=== PATIENT | male | born 1980 | race Hispanic/Latino ===

== ENCOUNTER 2025-08-05 11:54 | Emergency (ER) | payer OTHER, SELFPAY ==
[2025-08-05 12:18] VITALS: BP 118/78; PULSE 83; RESP 18; TEMP 36.8; O2SAT 97; BMI 30.2
--- NOTE | 2025-08-05 12:29 | ED_ITS ---
HPI - Male Genitourinary General Chief complaint: Urogenital-Male Stated complaint: Freq urination and px Time Seen by Provider: 08/05/25 12:03 Source: patient Mode of arrival: Ambulatory History of Present Illness HPI Narrative: 45-year-old gentleman kidney stones presents with bilateral flank pain radiating to groin for the past few days and dysuria. Patient denies any fever, chills, bodyaches, penile discharge, abdominal pain, nausea, vomiting, diarrhea, rectal pain, constipation. Other than what is stated 14 point review of system is negative. Related Data Previous Rx's ?Medication ?Instructions ?Recorded tamsulosin 0.4 mg capsule (Flomax) 0.4 mg PO BEDTIME # 30 caps 08/05/25 Allergies Allergy/AdvReac Type Severity Reaction Status Date / Time sulfamethoxazole (From Allergy Severe Vomiting Verified 08/05/25 12:19 Bactrim) trimethoprim (From Bactrim) Allergy Severe Vomiting Verified 08/05/25 12:19 Penicillins Allergy Intermediate Verified 08/05/25 12:19 Review of Systems Review of Systems ROS Unobtainable: All systems reviewed & are unremarkable except as noted in HPI and below Patient History Social History Smoking Status: Current some day smoker Smoking Status: Current some day smoker tobacco type: e-cigarettes Exam Narrative Exam Narrative: GENERAL: [45] year old patient appears stated age. Well-developed patient, in mild distress. HEAD: Atraumatic. Normocephalic. EYES: Pupils equal round and reactive. Extraocular motions intact. No scleral icterus. No injection or drainage. ENT: Nose without bleeding, purulent drainage. Throat without erythema, tonsillar hypertrophy or exudate. Airway patent. NECK: Trachea midline. Non tender CARDIOVASCULAR: Regular rate and rhythm without murmurs, gallops, or rubs. RESPIRATORY: Clear to auscultation. Breath sounds equal bilaterally. No wheezes, rales, or rhonchi. GASTROINTESTINAL: Abdomen soft, non-tender, nondistended. EXTREMITIES: No edema or joint tenderness. BACK: Nontender without deformity or crepitance. No flank tenderness. NEURO: AOx3. SKIN: No rash or erythema of visible areas Initial Vital Signs Initial Vital Signs: Vital Signs Temperature 98.2 F 08/05/25 12:18 Pulse Rate 83 08/05/25 12:18 Respiratory Rate 18 08/05/25 12:18 Blood Pressure 118/78 08/05/25 12:18 Pulse Oximetry 97 08/05/25 12:18 Oxygen Delivery Method Room Air 08/05/25 12:18 Course Orders Ordered: ED Orders 08/05/25 14:26 CT abdomen pelvis w con Stat 08/05/25 14:34 CBC Auto Diff [Complete Blood Count AUTO DIFF] Stat CMP [Comprehensive Metabolic Panel] Stat Vital Signs Vital signs: Vital Signs - 8 hr 08/05/25 12:18 Temperature 98.2 F Pulse Rate 83 Respiratory Rate 18 Blood Pressure 118/78 Pulse Oximetry 97 Oxygen Delivery Method Room Air MDM - Male Genitourinary Lab Data 08/05/25 14:34 08/05/25 14:34 Labs: Lab Results 08/05/25 Range/Units 14:34 WBC 6.7 (4.5-11.0) X10^3/uL RBC 4.73 (4.5-5.9) X10^6/uL Hgb 14.4 (13.5-17.5) g/dL Hct 42.3 (41-53) % MCV 89.3 (80-100) fL MCH 30.5 (26-34) PG MCHC 34.1 (30-36) % RDW 13.7 (11.6-14.8) % Plt Count 282 (150-400) X10^3/uL Neut % (Auto) 57.3 (50-75) % Lymph % (Auto) 26.2 (25-40) % Andrews % (Auto) 7.0 (3-14) % Eos % (Auto) 8.6 H (2-4) % Baso % (Auto) 0.9 (0-2) % Neut # (Auto) 3800 (0601-1156) /uL Lymph # (Auto) 1700 (2542-5529) /uL Andrews # (Auto) 500 (0-900) /uL Eos # (Auto) 600 H (0-450) /uL Baso # (Auto) 100 (0-100) /uL Sodium 138 (137-145) mmol/L Potassium 4.3 (3.4-5.1) mmol/L Chloride 104 (98-107) mmol/L Carbon Dioxide 28 (22-32) mmol/L BUN 16 (9-20) mg/dL Creatinine 0.80 (0.66-1.25) mg/dL Estimated GFR > 60 (>60) mL/min BUN/Creatinine Ratio 20.0 (6-22) Glucose 95 (70-99) mg/dL Calcium 9.6 (8.4-10.2) mg/dL Total Bilirubin 0.3 (0.2-1.3) mg/dL AST 26 (17-59) IU/L ALT 20 (<50) IU/L Alkaline Phosphatase 77 (38-126) U/L Total Protein 7.6 (6.3-8.2) g/dL Albumin 4.6 (3.5-5.0) g/dL Globulin 3.0 (1.7-4.1) g/dL Albumin/Globulin Ratio 1.5 (1.0-2.8) Urine Dip Bedside Urine Glucose Negative Bedside Urine Bilirubin - Negative Bedside Urine Ketone - Negative Urine Specific [place] 1.015 Bedside Urine Occult Blood - Negative Bedside Urine pH 6.0 Bedside Urine Protein +/- 15 Bedside Urine Urobilinogen - Negative Bedside Urine Nitrite - Negative Bedside Urine Leukocytes - Negative Esterase Imaging Data CT scan - abdomen/pelvis: Radiologist's Impression: [place] [address] CT Scan Report Signed Patient: Merlin Lucas MR#: [id number] : 1980 Acct:[id number] Age/Sex: 45 / M Date of Service: 08/05/25 Loc: Accession Number: [id number] Procedure: CT abdomen pelvis w con Ordering Provider: Grover Cook D.O. PROCEDURE: CT ABDOMEN PELVIS W CON INDICATIONS: abd pain back pain/kidney stone TECHNIQUE: After the administration of intravenous contrast, axial sections acquired from the lung bases to the pubic symphysis. Coronal and sagittal reformats were performed. For radiation dose reduction, the following was used: automated exposure control, adjustment of mA and/or kV according to patient size. COMPARISON: None. FINDINGS: Image quality: Diagnostic. Lower Chest: No significant findings. ABDOMEN: Liver: No solid mass. Gallbladder: Decompressed, no radiopaque stone. Biliary ducts: No biliary dilation. Pancreas: No ductal dilation. Spleen: Size is within normal limits. Adrenal Glands: No adrenal nodules. Kidneys and Ureters: No hydronephrosis. No solid mass. No complex renal cystic lesion which requires follow up. No delayed nephrogram. Stomach and Bowel: Normal colonic caliber, without significant wall thickening. Nonvisualized appendix. Peritoneum: No abnormal intraperitoneal fluid. No free air. Ventral Wall: No significant ventral hernia. Abdominal Nodes: No retroperitoneal or mesenteric adenopathy by size criteria. Vessels: Aorta and inferior vena cava are normal in size. PELVIS: Pelvic Organs: Prostatomegaly. Bladder: Circumferential bladder wall thickening. Pelvic Nodes: No enlarged lymph nodes. Miscellaneous: No inguinal hernias are seen. Bones: No aggressive osseous abnormality. Mild multilevel degenerative changes in the inferior lumbar spine. IMPRESSION: Prostatomegaly with circumferential bladder wall thickening, which may be secondary to underdistention in the setting of chronic outlet obstruction versus cystitis. Correlate with clinical history and urinalysis. No nephrolithiasis or hydronephrosis. MDM Narrative Medical decision making narrative: All lab work vital signs nurse triage note medication list previous ER visits and all imaging studies reviewed. CT scan showed prostatomegaly with circumferential bladder wall thickening with me be secondary to under distention the setting of chronic outlet obstruction versus cystitis. WBC 6.7 hemoglobin 14.4 platelets 282 electrolytes normal including kidney function LFTs normal. UA showed no acute process. Differential diagnosis kidney stone kidney infection UTI STD CKD. Patient given Flomax and be referred to Urology for further evaluation Discharge Plan Departure Patient Disposition: Home Clinical Impression: BPH (benign prostatic hyperplasia) Instructions: DI for Benign Prostatic Hyperplasia Activity Restrictions/Additional Instructions: Return with new or worsening symptoms. Follow up with Urologist call office for appointment [phone]. Take medication as directed. Prescriptions: New tamsulosin [Flomax] 0.4 mg capsule 0.4 mg PO BEDTIME Qty: 30 0RF Stand Alone Forms: Patient Portal/API
--- NOTE | 2025-08-05 14:26 | DI.CT.S_ITS ---
PROCEDURE: CT ABDOMEN PELVIS W CON INDICATIONS: abd pain back pain/kidney stone TECHNIQUE: After the administration of intravenous contrast, axial sections acquired from the lung bases to the pubic symphysis. Coronal and sagittal reformats were performed. For radiation dose reduction, the following was used: automated exposure control, adjustment of mA and/or kV according to patient size. COMPARISON: None. FINDINGS: Image quality: Diagnostic. Lower Chest: No significant findings. ABDOMEN: Liver: No solid mass. Gallbladder: Decompressed, no radiopaque stone. Biliary ducts: No biliary dilation. Pancreas: No ductal dilation. Spleen: Size is within normal limits. Adrenal Glands: No adrenal nodules. Kidneys and Ureters: No hydronephrosis. No solid mass. No complex renal cystic lesion which requires follow up. No delayed nephrogram. Stomach and Bowel: Normal colonic caliber, without significant wall thickening. Nonvisualized appendix. Peritoneum: No abnormal intraperitoneal fluid. No free air. Ventral Wall: No significant ventral hernia. Abdominal Nodes: No retroperitoneal or mesenteric adenopathy by size criteria. Vessels: Aorta and inferior vena cava are normal in size. PELVIS: Pelvic Organs: Prostatomegaly. Bladder: Circumferential bladder wall thickening. Pelvic Nodes: No enlarged lymph nodes. Miscellaneous: No inguinal hernias are seen. Bones: No aggressive osseous abnormality. Mild multilevel degenerative changes in the inferior lumbar spine. IMPRESSION: Prostatomegaly with circumferential bladder wall thickening, which may be secondary to underdistention in the setting of chronic outlet obstruction versus cystitis. Correlate with clinical history and urinalysis. No nephrolithiasis or hydronephrosis. Dictated by: Toro Samaniego M.D. on 08/05/2025 at 16:03 Approved by: Toro Samaniego M.D. on 08/05/2025 at 16:06
[2025-08-05 14:51] LABS: Add Manual Diff / Slide Review NO; Hematocrit 42.3 % (41-53); Hemoglobin 14.4 g/dL (13.5-17.5); Lymphocytes Absolute Auto 1700 /uL (1100-4500); Mean Corpuscular HGB Conc 34.1 % (30-36); Mean Corpuscular Hemoglobin 30.5 PG (26-34); Mean Corpuscular Volume 89.3 fL (80-100); Platelet Count 282 X10^3/uL (150-400)
[2025-08-05 14:55] LABS: Alanine Aminotransferase 20 IU/L (<50); Albumin 4.6 g/dL (3.5-5.0); Albumin Globulin Ratio 1.5 (1.0-2.8); Alkaline Phosphatase 77 U/L (38-126); Blood Urea Nitrogen 16 mg/dL (9-20); Calcium 9.6 mg/dL (8.4-10.2); Carbon Dioxide 28 mmol/L (22-32); Chloride 104 mmol/L (98-107); Estimated Glomerular Filt Rate > 60 mL/min (>60); Globulin 3.0 g/dL (1.7-4.1); Glucose 95 mg/dL (70-99); HEMOLYSIS 22 (0-50); Potassium 4.3 mmol/L (3.4-5.1); Sodium 138 mmol/L (137-145); Total Protein 7.6 g/dL (6.3-8.2)
[2025-08-05] MEDS: TAMSULOSIN 0.4 MG CAPSULE PO (16:46)
--- NOTE | 2025-08-05 16:54 | PC.NURSE ---
Pt was seen and evaluated by provider and deemed safe for DC. DC instructions reviewed by this RN. Pt states understanding.
[2025-08-05 16:55] VITALS: BP 124/72; PULSE 74; RESP 18; O2SAT 98
== END 2025-08-05 16:56 | disposition home or self-care (01) ==
PROVIDERS: Emergency Provider Family Medicine
DX: R30.0 Dysuria (principal); R10.A3 Flank pain, bilateral
CPT/HCPCS: 36415; 74177; 80053; 81003; 85025; 99283; 99284; Q9967